=== PATIENT | female | born 1955 | race Caucasian/White ===

== ENCOUNTER → 2018-02-17 | Outpatient (CLI) | payer OTHER ==
--- NOTE | 2018-02-18 11:38 | MR ---
EXAMINATION TYPE: MR cspine/lspine wo con DATE OF EXAM: 02/17/2018 COMPARISON: None HISTORY: Cervicalgia, lumbago, tingling, spasms CONTRAST: Performed utilizing 0 mL intravenous Gadavist gadolinium contrast. TECHNIQUE: Multiplanar multiecho imaging on a 3.0 Shari magnet is performed through the cervical spin e. FINDINGS: The craniovertebral junction is normal. Vertebral body alignment is normal. C7-T1: No focal disc herniation or significant disc bulge is evident. No spinal canal stenosis or n eural foraminal stenosis is present. C6-7: Broad-based disc bulge has moderate anterior thecal sac compression. No AP spinal canal stenosi s is present. No cord contact is evident. Moderate bilateral foraminal narrowing is present.. C5-6: Broad-based disc bulge has moderate anterior thecal sac compression. This may have some anterio r thecal sac flattening. Some focal protrusion appears to be in the left paracentral region may has s ome contact and/or displacement of the exiting left nerve roots at this level. Correlate for radicula r symptoms. Moderate foraminal narrowing is present on the left.. C4-5: No focal disc herniation or significant disc bulge is evident. No spinal canal stenosis or lizzie ral foraminal stenosis is present. C3-4: No focal disc herniation or significant disc bulge is evident. No spinal canal stenosis or lizzie ral foraminal stenosis is present. C2-3: No focal disc herniation or significant disc bulge is evident. No spinal canal stenosis or lizzie ral foraminal stenosis is present. Signal through the cord is preserved. No signal abnormality is evident. Some pulsation artifact is no toni in the cervical spine on the T2 sagittal images IMPRESSIONS: 1. Broad-based disc bulging C5-6 C6-7. This may has some cord flattening at C5-6. 2. Some focal protrusion in the left paracentral region at C5-6 may have displacement of the exiting nerve roots on the left. Correlate with the radicular symptoms. EXAMINATION TYPE: MR kenny/kristi wo con DATE OF EXAM: 02/17/2018 COMPARISON: None HISTORY: Cervicalgia, lumbago, tingling, spasms CONTRAST: 0 mL intravenous Gadavist. TECHNIQUE: Multiplanar, multisequence images of the lumbar spine were acquired. FINDINGS: Cord terminates at the L1-L2 level. There is patchy marrow signal throughout the lumbar sp ine. 1.6 cm cortical renal cysts present on the left. L5-S1: No significant disc bulge or disc herniation. No spinal canal stenosis. No foraminal stenosi s. Neural foramen are patent.. L4-L5: Broad-based disc bulge is present with moderate anterior thecal sac flattening. Facet hypertro phy and ligamentum flavum laxity has posterior lateral thecal sac compression. No foraminal stenosis is present. Very mild anterior listhesis of L4 on L5 may be present. L3-L4: Broad-based disc bulge has mild anterior thecal sac compression. Small left paracentral focal protrusion has anterior thecal sac compression. No spinal canal stenosis present. Facet hypertrophy a nd ligamentum flavum laxity is posterior lateral thecal sac compression. No AP spinal canal stenosis or foraminal stenosis is present. L2-L3: Broad-based disc bulge is anterior thecal sac contact. No AP spinal canal stenosis or neural f oraminal stenosis is present. L1-L2: No significant disc bulge or disc herniation. No spinal canal stenosis. No foraminal stenosi s. Neural foramen are patent.. T12-L1: No significant disc bulge or disc herniation. No spinal canal stenosis. No foraminal stenos is. Neural foramen are patent.. IMPRESSION: 1. Minimal grade 1 spondylolisthesis of L4 anterior and L5. Disc uncovering has mild anterior thecal sac contact. 2. Facet hypertrophy and ligamentum flavum laxity L4-5, L3-4.
== END | disposition home or self-care (01) ==
LOC: RADMRIMAIN 09:53
PROVIDERS: ATTEND Psychiatry & Neurology Neurology
DX: M50.222 Other cervical disc displacement at C5-C6 level (principal); M43.16 Spondylolisthesis, lumbar region; Z91.018 Allergy to other foods
CPT/HCPCS: 72141; 72148

== ENCOUNTER → 2020-06-25 | Outpatient (CLI) | payer OTHER ==
--- NOTE | 2020-06-25 20:30 | MR ---
EXAMINATION TYPE: MR lumbar spine wo con DATE OF EXAM: 06/25/2020 COMPARISON: MRI lumbar spine February 17, 2018 HISTORY: Lower back pain into both hips and Down the Right leg. Right leg radiculopathy per order. TECHNIQUE: Multiplanar, multisequence imaging of the lumbar spine is performed without IV contrast. FINDINGS: Slight scoliotic curvature on survey images redemonstrated. Sagittal images of the lumbar s pine show vertebral body heights to appear satisfactory. Slight grade 1 anterolisthesis L4 on L5 rede monstrated. Multilevel disc desiccation again seen. Stable ogkd-ey-mnxebogy multilevel disc space doyle rowing with relative sparing of L5-S1 level The conus medullaris remains normal in position and signa l ending inferior L1 level. There is persistent marked heterogeneity of bone marrow signal intensity but no definitive T1 signal lower than skeletal muscle. No significant change from prior. Axial images show T12-L1 and L1-L2 levels to remain within normal limits. Axial images at L2-L3 level show moderate disc bulge mildly effacing anterior thecal sac. Patent bila teral neural foramina. No significant change from prior. Axial images at L3-L4 level show mild/moderate broad disc bulge with central disc protrusion componen t effacing the anterior thecal sac on image 13. There is mild facet arthropathy and ligamentum flavum hypertrophy bilaterally. There is effacement of the posterior lateral thecal sac. Patent bilateral n eural foramina. No significant change from prior. Axial images at L4-L5 level show spondylolisthesis with mild to moderate facet degenerative changes a nd ligament flavum hypertrophy efface the posterior lateral thecal sac. There is moderate broad disc bulge effacing the anterior thecal sac. There is mild bilateral anterior inferior neural foraminal na rrowing. No significant change from prior. Axial images at the L5-S1 level show mild/moderate facet degenerative changes bilaterally. Spinal can al preserved. Patent bilateral neural foramina. Stable 1.6 cm thin-walled cyst posteriorly upper pole of the left kidney image 28 IMPRESSION: Overall stable findings from 2018 MRI. Multilevel degenerative changes mid to lower lumba r spine as detailed above. Spondylolisthesis L4-L5 level redemonstrated.
== END ==
LOC: RADMRIMAIN 14:34
PROVIDERS: ATTEND Anesthesiology
DX: M47.27 Other spondylosis with radiculopathy, lumbosacral region (principal); M43.16 Spondylolisthesis, lumbar region; M51.16 Intervertebral disc disorders with radiculopathy, lumbar region
CPT/HCPCS: 72148

== ENCOUNTER → 2022-03-12 | Outpatient (CLI) | payer MEDICARE, OTHER ==
--- NOTE | 2022-03-12 15:55 | MR ---
EXAMINATION TYPE: MR hip RT wo/w con DATE OF EXAM: 03/12/2022 COMPARISON: None HISTORY: PAIN IN RIGHT THIGH CONTRAST: Standard multiplanar, multisequence MRI departmental protocol images were obtained without contrast a nd with 5 mL intravenous Gadavist gadolinium contrast. The bony pelvis is intact. The proximal right femur is intact. No focal bone destruction. No evidence of avascular necrosis. No evidence of any significant hip joint effusion. No free fluid in the pelvi s. No evidence of a pelvic mass. Bladder distends smoothly. Sacroiliac joints appear intact. No evide nce of a soft tissue mass. Contrast images show no pathologic enhancement. There is very slight increased fluid signal around the greater trochanter of the right femur compared to the left. IMPRESSION: Minimal increased fluid at the right greater trochanter suggestive of minimal trochanteric bursitis. No fracture. No evidence of avascular necrosis.
== END | disposition home or self-care (01) ==
LOC: RADMRIMAIN 14:24
PROVIDERS: ATTEND Orthopaedic Surgery
DX: M79.651 Pain in right thigh (principal)
CPT/HCPCS: 73723; A9585

== ENCOUNTER → 2022-03-14 | Outpatient (CLI) | payer MEDICARE, OTHER ==
--- NOTE | 2022-03-15 05:50 | MR ---
EXAMINATION TYPE: MR femur/thigh RT wo/w con DATE OF EXAM: 03/14/2022 COMPARISON: None HISTORY: Palpable lump on proximal lateral thigh. CONTRAST: Standard multiplanar, multisequence MRI departmental protocol images were obtained without contrast a nd with 6 mL intravenous Gadavist gadolinium contrast. There is a marker placed on the skin surface over the anterior lateral aspect of the right upper thig h at the level of the femoral head. The subcutaneous fat appears to have normal signal pattern. No ev idence of a soft tissue mass in the area of concern. No pathologic fluid collection. The acetabula appear intact. There is no evidence of femoral fracture. No focal bone destruction. No evidence of bone edema. No evidence of avascular necrosis. No sign of free fluid in the pelvis. The contrast images show no pathologic enhancement. The muscle b undles of the pelvis and thighs appear symmetric. IMPRESSION: No evidence of a soft tissue mass. Negative MR scan of the lower pelvis and right thigh. Normal hip j oints.
== END | disposition home or self-care (01) ==
LOC: RADMRIMAIN 17:48
PROVIDERS: ATTEND Orthopaedic Surgery
DX: M79.651 Pain in right thigh (principal); M25.551 Pain in right hip
CPT/HCPCS: 73720; A9585

== ENCOUNTER → 2024-07-29 | Outpatient (CLI) | payer MEDICARE, OTHER ==
[2024-07-29 15:36] LABS: Basophils # (A) 0.08 X 10*3/uL (0.00-0.10); Basophils % (A) 1.2 %; Eosinophils # (A) 0.13 X 10*3/uL (0.04-0.35); HCT 42.4 % (37.2-46.3); HGB 14.1 g/dL (12.0-15.0); Lymphocytes # (A) 1.55 X 10*3/uL (0.90-5.00); MCH 31.5 pg (27.0-32.0); MCHC 33.3 g/dL (32.0-37.0); MCV 94.9 FL (80.0-97.0); Mean Platelet Volume 9.7 FL (9.5-12.2); Monocytes % (A) 6.2 %; NRBC Per 100 WBC 0 X 10*3/uL (0.00-0.01); Neutrophils # (A) 4.29 X 10*3/uL (1.80-7.70); Neutrophils % (A) 66.4 %; Platelet Count 303 X 10*3/uL (140-440); RBC 4.47 X 10*6/uL (4.10-5.20); RDW 12.2 % (11.5-14.5); WBC 6.46 X 10*3/uL (4.50-10.00)
[2024-07-29 15:52] LABS: BUN/Creat Ratio 12.75 Ratio (12.00-20.00); Blood Urea Nitrogen 10.2 mg/dL (9.0-27.0); Calcium 9.4 mg/dL (8.7-10.3); Carbon Dioxide 25.8 mmol/L (21.6-31.8); Chloride 102 mmol/L (96-109); Glucose 108 mg/dL (70-110); Potassium 4.1 mmol/L (3.5-5.5); Sodium 139 mmol/L (135-145)
== END | disposition home or self-care (01) ==
LOC: LABPAT 09:31
PROVIDERS: ATTEND Orthopaedic Surgery
DX: Z01.818 Encounter for other preprocedural examination (principal); M65.342 Trigger finger, left ring finger; I51.89 Other ill-defined heart diseases; R94.31 Abnormal electrocardiogram [ECG] [EKG]
CPT/HCPCS: 36415; 80048; 85025